=== PATIENT | female | born 1995 | race Caucasian/White ===

== ENCOUNTER 2020-12-01 13:01 | Emergency (ER) | payer OTHER ==
[~2020-12-01] VITALS: Ht 167.6 cm; Wt 78.0 kg
[2020-12-01 17:28] LABS: CLARITY URINE CLOUDY (CLEAR); COLOR URINE YELLOW (YELLOW); KETONES URINE NEGATIVE (NEGATIVE); LEUKOCYTE ESTERASE URINE 1+ (NEGATIVE); NITRITE URINE NEGATIVE (NEGATIVE); OCCULT BLOOD URINE NEGATIVE (NEGATIVE); PH URINE 5.5 (4.5-8.0); PROTEIN URINE NEGATIVE (NEGATIVE); SPECIFIC GRAVITY URINE 1.021 (1.005-1.030); UROBILINOGEN URINE 0.2 E.U./dL (0.2-1.0)
[2020-12-01 18:08] LABS: BASOPHILS % 0.3 % (0.0-2.0); EOSINOPHILS % 0.9 % (0.0-5.0); HEMATOCRIT. 43.8 % (36.0-48.0); HEMOGLOBIN. 14.8 g/dL (12.0-16.0); LYMPHOCYTES % 22.6 % (20.0-50.0); MEAN CORPUSCULAR HEMOGLOBIN 27.6 pg (28.0-32.0); MEAN CORPUSCULAR VOLUME 81.5 fL (81.0-99.0); MEAN PLATELET VOLUME 9.1 fl (7.4-10.4); MONOCYTES % 2.6 % (2.0-8.0); NEUTROPHILS % 73.6 % (40.0-76.0); PLATELET 264 x1000/uL (130-400); RED BLOOD CELL COUNT 5.37 mill/uL (4.2-5.4); RED CELL DISTRIBUTION WIDTH 13.9 % (11.6-14.6)
[2020-12-01 18:12] LABS: CHLORIDE 106 mEq/L (98-107)
[2020-12-01] MEDS ORDERED: NITR-87 MT (18:33)
[2020-12-01 19:01] VITALS: BP 149/99
== END 2020-12-01 19:01 | disposition home or self-care (01) ==
LOC: ER 13:01
DX: R07.9 Chest pain, unspecified (principal); N39.0 Urinary tract infection, site not specified
CPT/HCPCS: 36415; 71045; 80053; 81003; 81025; 84484; 85025; 93005; 99285

== ENCOUNTER 2023-07-09 00:29 | Emergency (ER) | payer MEDICAID, OTHER ==
[~2023-07-09] VITALS: Ht 167.6 cm; Wt 91.0 kg
[~2023-07-09 00:29] MED LIST: NITR-87 MT
[2023-07-09 00:36] VITALS: O2SAT 94
[2023-07-09] MEDS: MAGNESIUM 2 G PREMIX 50 ML IV ONE (01:25)
[2023-07-09] MEDS: SODIUM CHLORIDE 0.9% 1,000 ML IV ONE (01:49)
[2023-07-09 01:55] LABS: HEMATOCRIT. 36.4 % (36.0-48.0); HEMOGLOBIN. 12.2 g/dL (12.0-16.0); MEAN CORPUSCULAR HGB CONC 33.4 g/dL (31.0-37.0); MEAN CORPUSCULAR VOLUME 74.8 fL (81.0-99.0); MEAN PLATELET VOLUME 9.2 fl (7.4-10.4); PLATELET 404 x1000/uL (130-400); RED BLOOD CELL COUNT 4.86 mill/uL (4.2-5.4); RED CELL DISTRIBUTION WIDTH 15.2 % (11.6-14.6); WHITE BLOOD COUNT 8.4 x1000/uL (4.5-11.0)
[2023-07-09] MEDS: LABETALOL 5MG/ML 4ML INJ IV ONE (02:00)
[2023-07-09] MEDS: ACETAMINOPHEN 1000MG/100ML 100 ML IV ONE (02:00)
[2023-07-09 02:02] LABS: DIFFERENTIAL COMMENT 1
[2023-07-09 02:06] LABS: CHLORIDE 105 mEq/L (98-107); POTASSIUM 4.6 mEq/L (3.5-5.1); SODIUM 137 mEq/L (136-145)
[2023-07-09 02:07] LABS: CARBON DIOXIDE 22 mEq/L (21-32)
[2023-07-09 02:08] LABS: CALCIUM 9.8 mg/dL (8.7-10.4)
[2023-07-09 02:12] LABS: GLUCOSE 102 mg/dL (70-105)
[2023-07-09 02:13] LABS: UREA NITROGEN BLOOD 10 mg/dL (9-23)
[2023-07-09 02:22] LABS: B-HCG QUANTITATIVE 2 mIU/mL (<3)
[2023-07-09 04:00] VITALS: BP 135/78; PULSE 61; RESP 17; TEMP 98
[2023-07-09 11:40] LABS: ANISOCYTOSIS 1+; MICROCYTOSIS 2+; PLATELET ESTIMATE SLIGHTLY INCREASED
== END 2023-07-09 04:14 | disposition home or self-care (01) ==
LOC: ER 00:29
DX: I10 Essential (primary) hypertension (principal)
CPT/HCPCS: 99285; 96365; 76856; 96366; 80048; 84702; 85025; 86850; 86900; 86901; 36415; J3490; J3475; J7030; J0131